=== PATIENT | female | born 1980 | race Caucasian/White ===

== ENCOUNTER 2016-10-26 21:20 | Emergency (ER) | payer OTHER ==
[~2016-10-26] VITALS: Ht 170.2 cm; Wt 82.1 kg
[2016-10-26 21:30] VITALS: Ht 170.2 cm; Wt 82.1 kg
--- OUTSIDE RECORDS SUMMARY | 2016-10-26 21:30 | XMS REPORT | Continuity of Care Document ---
Author Author [facility] Organization [facility] Address Unknown Phone Unavailable Allergies Active Description Code Type Severity Reaction Onset Reported/Identified Relationship to Patient Clinical Status Yes No Known Drug Intolerances No Known Drug Intolerances Drug Allergy Unknown N/A 11/27/1997 Yes No Known Drug Allergies No Known Drug Allergies Drug Allergy Unknown NO ALLERGIES 11/07/2011 Yes No Known Allergies No Known Allergies Drug Allergy Unknown N/A 06/03/2015 Yes No Known Drug Intolerances No Known Drug Intolerances Drug Allergy Unknown NONE 06/03/2015 Medications Problems Date Dx Coded Attending Type Code Diagnosis Diagnosed By 06/26/2015 Keeley Rivera MD O10.92 UNSP PRE-EXISTING HYPERTENSION COMPLICATING CHILDB 06/26/2015 Keeley Rivera MD O69.81X0 LABOR AND DEL COMP BY CORD AROUND NECK, W /O COMPRS 06/26/2015 Keeley Rivera MD Z34.83 ENCOUNTER FOR SUPRVSN OF NORMAL , THIRD TRIMESTER 06/26/2015 Keeley Rivera MD Z37.0 SINGLE LIVE 06/26/2015 Keeley Rivera MD Z3A.39 39 WEEKS GESTATION OF Procedures Code Description Performed By Performed On [id number] DRAINAGE OF AMNIOTIC FL, THERAP FROM POC, VIA OPEN Keeley Rivera MD 06/26/2015 [id number] DELIVERY OF PRODUCTS OF CONCEPTION, EXTERNAL APPRO Keeley Rivera MD 06/26/2015 [id number] INTRODUCTION OF OTH HORMONE INTO PERIPH VEIN, PERC Keeley Rivera MD 06/26/2015 Results Test Result Range CHEM/HEM PROFILE-BEDSIDE - 07/31/13 02:43 POTASSIUM 3.4 mmol/L 3.5-5.3 METHOD Bedside ANION GAP 14 mmol/L 10-20 METHOD Bedside GLUCOSE 108 mg/dL 70-99 BLOOD UREA NITROGEN 11 mg/dL 7-20 CREATININE 0.9 mg/dL 0.6-1.0 HEMOGLOBIN 13.6 gm/dL 12.0-16.0 HEMATOCRIT 40.0 % 37.0-47.0 SODIUM 142 mmol/L 135-148 CHLORIDE 107 mmol/L 98-110 CARBON DIOXIDE 25 mmol/L 21-32 CALCIUM IONIZED 4.9 mg/dL 4.5-5.3 TROPONIN I BEDSIDE - 07/31/13 02:44 METHOD Bedside TROPONIN I < 0.04 ng/mL < 0.11 UR PROTEIN - 05/28/15 09:20 UR PROTEIN CALCULATED 157.5 mg/day < 149.1 UR PROTEIN DARRELL DURATION 24 hrs UR TOTAL PROTEIN LEVEL 6.3 mg/dL 0.0- 11.9 UR PROTEIN TOTAL VOLUME 2500 mL Microbiology UR CREATININE CLEARANCE - 05/28/15 09:20 UR CREAT CLEAR DARRELL DURATION 24 hrs CREAT CLEARANCE (W/BSA CORREC) 128 mL/minm2 80-125 P'T. HEIGHT FOR CRCL 67 inches P'T. WEIGHT FOR CRCL 205 lbs UR CREATININE TOTAL VOLUME 2500 mL UR CREATININE LEVEL 60.8 mg/dL 44-467 CREAT FOR CRCL 0.7 mg/dL 0.6-1.0 CBC W/DIFF - 05/28/15 09:20 EOSINOPHIL # 0.3 k/cumm 0.1-0.5 EOSINOPHIL % 3 % 2-4 GRANULOCYTE # 7.5 k/cumm 2.0-9.0 GRANULOCYTE % 74 % 50-75 LYMPHOCYTE # 1.6 k/cumm 1.0-4.0 LYMPHOCYTE % 16 % 20-30 MEAN CELL HGB 30.1 pg 27.0-33.0 MEAN CELL HGB CONCENTRATION 33.9 g/dL 32.0-37.0 MEAN CELL VOLUME 88.7 fl 80.0-100.0 MONOCYTE # 0.6 k/cumm 0.1-1.0 MONOCYTE % 6 % 4-6 RED BLOOD CELL 3.99 m/cumm 4.00-6.00 RED CELL DISTRIBUTION WIDTH 14.1 % 11.0- 15.6 WHITE BLOOD CELL 10.2 k/cumm 5.0-10.0 HEMOGLOBIN 12.0 gm/dL 12.0-16.0 HEMATOCRIT 35.4 % 37.0-47.0 PLATELET COUNT 206 k/cumm 150-400 Microbiology METABOLIC PANEL, COMPREHN - 05/28/15 09:20 POTASSIUM 3.3 mmol/L 3.5-5.3 EST GFR (MDRD) > 60 mL/min > 59 ANION GAP 10 mmol/L 5-15 GLUCOSE 138 mg/dL 70-99 CALCIUM 7.9 mg/dL 8.5-10.1 BLOOD UREA NITROGEN 8 mg/dL 7-20 CREATININE 0.7 mg/dL 0.6-1.0 SODIUM 140 mmol/L 135-148 CHLORIDE 106 mmol/L 98-110 AST/SGOT 19 Units/L 10-37 ALT/SGPT 23 Units/L < 66 CARBON DIOXIDE 24 mmol/L 21-32 TOTAL PROTEIN 6.5 gm/dL 6.4-8.2 ALBUMIN 2.7 gm/dL 3.4-5.0 BILI TOTAL 0.2 mg/dL 0.0-1.0 ALKALINE PHOSPHATASE TOTAL 93 IU/L 45- 117 Microbiology URIC ACID - 05/28/15 09:20 URIC ACID 4.4 mg/dL 2.6-6.0 LACTATE DEHYDROGENASE (LDH/LD) - 05/28/15 09:20 LACTATE DEHYDROGENASE (LDH/LD) 168 Units/L 81-234 CBC - 06/26/15 22:50 MEAN CELL HGB 29.8 pg 27.0-33.0 MEAN CELL HGB CONCENTRATION 33.3 g/dL 32.0-37.0 MEAN CELL VOLUME 89.5 fl 80.0-100.0 RED BLOOD CELL 4.09 m/cumm 4.00-6.00 RED CELL DISTRIBUTION WIDTH 14.5 % 11.0- 15.6 WHITE BLOOD CELL 12.7 k/cumm 5.0-10.0 HEMOGLOBIN 12.2 gm/dL 12.0-16.0 HEMATOCRIT 36.6 % 37.0-47.0 PLATELET COUNT 193 k/cumm 150-400 CORD VENOUS BLOOD GAS - 06/27/15 10:30 VENOUS CORD BLOOD BASE EXCESS -3.4 meq/L -5.8-0.7 COMMENT VENOUS VENOUS CORD BLOOD HCO3 21.8 meq/L 17.4- 25.4 VENOUS CORD BLOOD PCO2 40 mm Hg 28-57 VENOUS CORD BLOOD PH 7.36 7.23-7.46 VENOUS CORD BLOOD PO2 40 mm Hg 15-42 VENOUS CORD BLOOD O2 SAT 80 % 14-75 CORD ARTERIAL BLOOD GAS - 06/27/15 10:30 ARTERIAL CORD BLD BASE EXCESS -5.9 meq/L -7.6-1.3 COMMENT ARTERIAL ARTERIAL CORD BICARBONATE 24.0 meq/L 16.0 -27.1 ARTERIAL CORD BLOOD PCO2 68 mm Hg 32-69 ARTERIAL CORD BLOOD PH 7.17 7.14-7.40 ARTERIAL CORD BLOOD PO2 20.0 mm Hg 8-33 ARTERIAL CORD BLOOD O2 SAT 24 % 5-59 CBC - 06/27/15 13:59 MEAN CELL HGB 30.1 pg 27.0-33.0 MEAN CELL HGB CONCENTRATION 33.8 g/dL 32.0-37.0 MEAN CELL VOLUME 89.2 fl 80.0-100.0 RED BLOOD CELL 4.08 m/cumm 4.00-6.00 RED CELL DISTRIBUTION WIDTH 14.3 % 11.0- 15.6 WHITE BLOOD CELL 18.6 k/cumm 5.0-10.0 HEMOGLOBIN 12.3 gm/dL 12.0-16.0 HEMATOCRIT 36.4 % 37.0-47.0 PLATELET COUNT 170 k/cumm 150-400 METABOLIC PANEL, COMPREHN - 06/27/15 13:59 POTASSIUM 3.5 mmol/L 3.5-5.3 EST GFR (MDRD) > 60 mL/min > 59 ANION GAP 10 mmol/L 5-15 EST CrCl (CG) > 60 mL/min > 59 GLUCOSE 87 mg/dL 70-99 CALCIUM 8.1 mg/dL 8.5-10.1 BLOOD UREA NITROGEN 7 mg/dL 7-20 CREATININE 0.6 mg/dL 0.6-1.0 SODIUM 142 mmol/L 135-148 CHLORIDE 109 mmol/L 98-110 AST/SGOT 27 Units/L 10-37 ALT/SGPT 28 Units/L < 66 CARBON DIOXIDE 23 mmol/L 21-32 TOTAL PROTEIN 6.1 gm/dL 6.4-8.2 ALBUMIN 2.6 gm/dL 3.4-5.0 BILI TOTAL 0.3 mg/dL 0.0-1.0 ALKALINE PHOSPHATASE TOTAL 107 IU/L 45- 117 URIC ACID - 06/27/15 13:59 URIC ACID 5.0 mg/dL 2.6-6.0 LACTATE DEHYDROGENASE (LDH/LD) - 06/27/15 13:59 LACTATE DEHYDROGENASE (LDH/LD) 230 Units/L 81-234 Encounters ACCT No. Visit Date/Time Discharge Status Pt. Type Provider Facility Loc./Unit Complaint [id number] 06/26/2015 22:11:00 2014 13:47:00 DIS Inpatient Miguel HECK, [facility] W.5WH [id number] 06/03/2015 10:07:00 2014 12:12:00 DIS Emergency Miguel HECK, [facility] W.2WOBED [id number] 05/28/2015 09:08:00 2014 09:08:00 DIS Outpatient Miguel HECK, [facility] W.LAB [id number] 07/31/2013 01:22:00 2012 04:31:00 DIS Emergency Kevin FERNANDEZ, [facility] Richardson [facility] W.EDS
--- OUTSIDE RECORDS SUMMARY | 2016-10-26 21:56 | XMS REPORT | Continuity of Care Document ---
Author Author [facility] Organization [facility] Address Unknown Phone Unavailable Allergies Active Description [...] Procedures Code Description Performed By Performed On [id number] DRAINAGE OF AMNIOTIC FL, THERAP FROM POC, VIA OPEN Keeley Rivera MD 06/26/2015 [id number] DELIVERY OF PRODUCTS OF CONCEPTION, EXTERNAL APPRO Keeley Rivera MD 06/26/2015 [id number] INTRODUCTION OF OTH HORMONE INTO PERIPH VEIN, [...] Status Pt. Type Provider Facility Loc./Unit Complaint [id number] 06/26/2015 22:11:00 2014 13:47:00 DIS Inpatient Miguel HECK, [facility] W.5WH [id number] 06/03/2015 10:07:00 2014 12:12:00 DIS Emergency Miguel HECK, [facility] W.2WOBED [id number] 05/28/2015 09:08:00 2014 09:08:00 DIS Outpatient Miguel HECK, [facility] W.LAB [id number] 07/31/2013 01:22:00 2012 04:31:00 DIS Emergency Kevin FERNANDEZ, [facility] W.EDS
--- NOTE | 2016-10-26 22:19 | ERPDOC ---
Departure Disposition Decision Date: Oct 27, 2016 Disposition Decision Time: 00:02 Disposition: 01 DISCHARGED HOME, SELF-CARE Impression Impression Impression: Primary Impression: Headache Qualified Codes: R51 - Headache Severity: Moderate Condition: Stable Seen By: Physician only Patient Instructions: General Headache (ED) Problems/Meds/Labs Reviewed?: Yes Medications reviewed and manag: Yes Additional Instructions: Follow-up with PCP if not improving Follow up care ordered?: Yes Mental Status: Alert, Oriented HPI - Headache General Chief Complaint: Headache Stated Complaint: HEADACHE/FACIAL NUMBNESS Time Seen by Provider: 21:24 Source: patient Exam Limitations: no limitations HPI - Headache Initial Comments Patient is a 36-year-old female presents in respiratory for evaluation of headache. Patient gets frequent headaches, she states they are not migraines. Patient started having some numbness in her forehead during a headache which is now running down her face into her neck. Patient's got no nausea no vomiting no photophobia. Patient is taking no medications decided present to the ER for evaluation Occurred At: home Onset: Rapid Allergies: Coded Allergies: NKDA (Verified Allergy, Unknown, 10/26/16) Past History Past Medical History Pt denies signifigant H Surgical History Denies Surgeries Review of Systems Constitutional Constitutional: DENIES: appetite decrease, chills, dizziness, fever, weakness Eyes Vision: DENIES: double vision, loss of visual drummond ENMT Sinuses: DENIES: congestion, rhinorrhea Mouth/Throat: DENIES: scratchy throat, sore throat Cardiovascular Cardiac: DENIES: chest pain, dyspnea on exertion Pulmonary Respiratory: DENIES: cough, dyspnea, sputum, tachypnea GI Upper Abdomen: DENIES: nausea, pain, vomiting Lower Abdomen: DENIES: constipation, diarrhea, pain General: DENIES: frequency, urgency Musculoskeletal General: DENIES: cramps, pain, weakness Integumentary Skin: DENIES: color change, itching, rash Neurological General: headache, numbness, DENIES: change in strength, weakness Endocrine Endocrine: DENIES: heat/cold intolerance Hematologic/Lymphatic Hematologic/Lymphatic: DENIES: anemia Physical Exam General General Nourishment: well nourished, well developed General Body Habitus: well groomed Vitals and Pain Weight: Kilograms: 82.100 Height (feet): 5 Height (inches): 7.00 Triage Pain Scale: RN VS reviewed by Provider: Yes Eyes (brief) Eyes Brief: found: PERRL ENMT (brief) ENMT Brief: FOUND: TM clear, TM good light reflex, ear canals clear, mucosa moist, normal dentition, NOT FOUND: nasal erythema, nasal exudate, nasal swelling Neck (brief) Neck: NOT FOUND: adenopathy, spasm, tenderness Respiratory (brief) Respiratory: FOUND: clear all drummond, equal bilaterally, NOT FOUND: rales, wheezes Cardiovascular (brief) Cardiac: FOUND: regular rate, regular rhythm Capillary Refill: <2 sec Abdomen (brief) Abdominal Brief: FOUND: bowel normo active x4, soft, NOT FOUND: tender Lymphatic (brief) Lymphatic Brief: NOT FOUND: adenopathy Musculoskeletal (brief) Musculoskeletal Brief: NOT FOUND: spasm, tenderness Integumentary (brief) Integumentary Brief: FOUND: dry, pink, warm, NOT FOUND: rash Neurologic Mental Status: FOUND: alert, oriented GCS Adult : GCS Eye Opening: (4)Spontaneous GCS Verbal: (5)Oriented GCS Motor: (6)Obeys Commands GCS Total: 15 Cranial Nerves: FOUND: other (cranial nerves II through XII intact) Motor : Motor Side: bilateral Motor Location: biceps, triceps, wrist, finger extensors, finger flexors, quadriceps, hamstring, foot extension, foot flexion, court usher strength Motor Degree: 5 Sensation: FOUND: soft touch intact x4 ext DTR's : DTR Location: Biceps, Patellar DTR Grade: 2+ Psychiatric (brief) Psychiatric Brief: FOUND: alert, oriented Differential Diagnoses Considering: Headache, Headache - Migraine, Headache - Tension/Muscle, Hypertensive Emergency, Temporal Arteritis, Viral Syndrome, Vomiting Progress Results/Orders Orders Procedure Category Date Status Time Cbc W/Auto LAB 10/26/16 Complete Diff-Reflex Manual 22:25 Bmp - Basic Metabolic LAB 10/26/16 Complete Panel 22:25 C-Reactive Protein - LAB 10/26/16 Complete CRP 22:25 LAB 10/26/16 Complete Qualitative, Serum 22:25 Ct Head W/O Contrast CT 10/26/16 Resulted 23:07 Ketorolac (Toradol) PHA 10/27/16 Complete 00:00 Lab Results Laboratory Tests Test 10/26/16 22:32 White Blood Count 9.0T/MM3 Red Blood Count 4.49M/MM3 Hemoglobin 13.2GM/DL Hematocrit 39.1% Mean Corpuscular Volume 87.1UM3 Mean Corpuscular Hemoglobin 29.4UUG Mean Corpuscular Hemoglobin Concent 33.8GM/DL RDW Standard Deviation 40.8FL Platelet Count 261T/MM3 Mean Platelet Volume 9.4UM3 Immature Granulocyte % (Auto) 0.1% Neutrophils (%) (Auto) 55.5% Lymphocytes (%) (Auto) 32.1% Monocytes (%) (Auto) 8.7% Eosinophils (%) (Auto) 3.2% Basophils (%) (Auto) 0.4% Absolute Immature Granulocyte (auto 0.01T/MM3 Absolute Neutrophils (auto) 5.0T/MM3 Absolute Lymphocytes (auto) 2.9T/MM3 Absolute Monocytes (auto) 0.8T/MM3 Absolute Eosinophils (auto) 0.3T/MM3 Absolute Basophils (auto) 0.0T/MM3 Turbidity < 20 Sodium Level 144MEQ/L Potassium Level 4.0MEQ/L Chloride Level 106MEQ/L Carbon Dioxide Level 26MEQ/L Anion Gap 12MEQ/L Blood Urea Nitrogen 12.0MG/DL Creatinine 0.8MG/DL Glomerular Filtration Rate Calc 81 BUN/Creatinine Ratio 15RATIO Glucose Level 112MG/DL Calculated Osmolality 278MOSM/KG Calcium Level 9.4MG/DL Icterus Index < 2 C-Reactive Protein 13.3MG/L Human Chorionic Gonadotropin, Qual Negative Chemistry Specimen Hemolysis < 15 Medications Current ED Medications Ketorolac Tromethamine (Toradol) 60 mg O ONCE IM Last administered on 00:25; Start 10/27/16 at 00:00; Stop 10/27/16 at 00:01; Status DC CT CT : CT: Head no contrast Interpretation: Normal, Reviewed Written Report JYOTSNA DONAHUE MD Oct 26, 2016 22:19
[2016-10-26 22:40] LABS: BASOPHILS % (AUTO) 0.4 % (0-2); EOSINOPHILS # (AUTO) 0.3 T/MM3 (0-0.5); EOSINOPHILS % (AUTO) 3.2 % (0-4); HCT - HEMATOCRIT 39.1 % (36-46); HGB - HEMOGLOBIN 13.2 GM/DL (12-16); IMMATURE GRANULOCYTE # (AUTO) 0.01 T/MM3 (0.00-0.03); IMMATURE GRANULOCYTE % (AUTO) 0.1 % (0.0-0.5); LYMPHOCYTES # (AUTO) 2.9 T/MM3 (1-4.8); LYMPHOCYTES % (AUTO) 32.1 % (23-45); MEAN CORPUSCULAR HGB 29.4 UUG (26-34); MEAN CORPUSCULAR HGB CONC(MCHC 33.8 GM/DL (31-37); MEAN CORPUSCULAR VOLUME 87.1 UM3 (80-100); MEAN PLATELET VOLUME 9.4 UM3 (9.4-12.4); MONOCYTES # (AUTO) 0.8 T/MM3 (0-0.8); MONOCYTES % (AUTO) 8.7 % (0-9.0); NEUTROPHILS % (AUTO) 55.5 % (33-66); RED BLOOD COUNT 4.49 M/MM3 (4.00-5.20)
[2016-10-26 22:48] LABS: ANION GAP 12 MEQ/L (5-15); BUN/CREATININE RATIO 15 RATIO (6-26); C-REACTIVE PROTEIN 13.3 MG/L (0-9); CALCIUM 9.4 MG/DL (8.4-10.2); CHLORIDE 106 MEQ/L (98-107); CO2 - CARBON DIOXIDE 26 MEQ/L (22-30); CREATININE 0.8 MG/DL (0.7-1.2); GLOMERULAR FILTRATION RATE 81; GLUCOSE 112 MG/DL (65-110); SODIUM 144 MEQ/L (134-144)
[2016-10-26] MEDS ORDERED: NORE-22 PO (23:07)
--- NOTE | 2016-10-26 23:21 | NUR ---
IMAGING PT TO IMAGING VIA WHEEL CHAIR.
--- NOTE | 2016-10-26 23:24 | NUR ---
IMAGING PT RETURN FOR CT VIA WHEEL CHAIR.
[2016-10-27] MEDS ORDERED: KETOROLAC 60mg/2ml INJECTION IM ONE
[2016-10-27 00:48] VITALS: BP 132/63; PULSE 103; RESP 19; TEMP 99.1; O2SAT 99
--- NOTE | 2016-10-27 00:48 | NUR ---
DEPART PT GIVEN DI FOR GENERAL HEADACHE. VERBALIZED UNDERSTANDING. QUESTIONS ASKED/ANSWERED - DENIES FURTHER QUESTIONS/NEEDS. STATES IMPROVEMENT IN PAIN. DENIES NAUSEA AT THIS TIME. PERSONAL BELONGING GATHERED. PT AMBULATED/ESCORTED TO ED EXIT - GAIT STABLE, NO SIGN OF DISTRESS.
--- NOTE | 2016-10-28 09:42 | DI ---
Indication: ITS.REASON: severe headache facial paresthesia PROCEDURE: CT HEAD W/O CONTRAST: Encounter: Initial Comparison: None Technique: Axial CT images through the head were performed without contrast. Iterative Reconstruction dose reducing technique was utilized. FINDINGS: The ventricles are of normal size, shape, and configuration for the patient's age. There is no evidence of acute intracranial hemorrhage, midline displacement, or mass effect. The CT attenuation of the brain parenchyma is normal within the cerebellum, brain stem, and cerebral hemispheres. The tympanic cavities and mastoid air cells are free of appreciable disease. There are no definite fractures of the skull base, calvarium, or visualized portion of the midface. IMPRESSION: No CT evidence of acute intracranial abnormality. Normal head CT. There is a preliminary report by [facility]. .
== END 2016-10-27 00:48 | disposition home or self-care (01) ==
LOC: ED 21:20
DX: R51 Headache (principal); R20.0 Anesthesia of skin
CPT/HCPCS: 36415; 70450; 80048; 84703; 85025; 86140; 96372; 99284; J1885